=== PATIENT | male | born 1945 | race Caucasian/White ===

== ENCOUNTER 2021-12-25 09:53 | Outpatient (CLI) | payer OTHER, SELFPAY ==
--- NOTE | 2021-12-25 15:37 | NEURO ---
NCS and/or EMG Patient Report Ordering Doctor: Shari Valdivia DATE OF SERVICE: 12/25/21 Red presents for electrodiagnostic testing of the upper limbs. He reports numbness and tingling in both hands, worse on the left side. Electrodiagnostic findings: Median motor nerve demonstrates prolonged distal latency bilaterally with normal amplitude and reduced conduction velocity. Normal ulnar motor response bilaterally. Prolonged median F wave bilaterally. Absent left median sensory response at the wrist. Absent left median palmar response. Prolonged right median sensory latency at the wrist. Prolonged right median palmar latency. Normal ulnar and radial sensory responses. On needle EMG, 1+ fibrillations are noted in the left pronator teres. All other muscles tested showed no evidence of denervation with normal motor unit action potentials. Electrodiagnostic impression: This is an abnormal study in the upper limbs. 1. Electrodiagnostic findings demonstrate bilateral median mononeuropathy. This is consistent with a moderate right carpal tunnel syndrome and a severe left carpal tunnel syndrome. 2. No electrodiagnostic evidence is noted for cervical radiculopathy.
== END 2021-12-25 23:59 | disposition home or self-care (01) ==
PROVIDERS: PCP Family Medicine
DX: G56.00 Carpal tunnel syndrome, unspecified upper limb (principal)
CPT/HCPCS: 95886; 95912

== ENCOUNTER → 2025-05-26 | Outpatient (CLI) | payer MEDICARE, SELFPAY ==
--- NOTE | 2025-05-26 08:50 | CT_ITS ---
PROCEDURE: ABDOMEN/PELVIS WITH CONTRAST 05/26/2025 REASON FOR EXAM: ABDOMINAL PAIN/CONSTIPATION/H/O DIVERTICULITIS TECHNIQUE: Procedure Code: [id number] Modality: CT Procedure: ABDOMEN/PELVIS WITH CONTRAST Coronal and Sagittal reconstruction series were provided. CONTRAST: Isovue-300 VOLUME: 100 mL One or more dose reduction techniques were used (e.g., Automated exposure control, adjustment of the mA and/or kV according to patient size, use of iterative reconstruction technique. RADIATION DOSE SUMMARY: CTDlvol: 14 mGy DLP: 1316.09 mGycm COMPARISON: None FINDINGS: There is a 2.4 cm cystic structure in the subcutaneous tissue overlying the lower right anterior chest wall. Lung bases: Minimal increased linear markings at the lung bases suggestive of linear atelectasis and/or scarring. Coronary artery calcification. Liver: Borderline hepatomegaly. Gallbladder: Small gallstones. Spleen: Normal size. Pancreas: Diffuse fatty atrophy. Adrenals: Unremarkable Kidneys: There is a 2.5 cm cyst in the lateral midportion of the right kidney. No evidence of hydronephrosis. Bladder: Mild degree of diffuse bladder wall thickening. The prostate is nonenlarged. Bowel: There is evidence of acute sigmoid diverticulitis with increased markings in the surrounding peritoneal fat in keeping with a inflammatory change. There is also evidence of a 5.6 cm by 6.1 cm fluid collection along the mesenteric side of the sigmoid colon with an air-fluid level. This may represent a localized abscess. This can not be drained percutaneously due to no safe access. For is also evidence of a small amount of free fluid in the right lower pelvis. Appendix: The appendix is not identified. There is no inflammatory process identified in the right lower quadrant to suggest appendicitis. Lymph nodes: Unremarkable. Vasculature: Mild diffuse atherosclerotic calcifications are noted. Peritoneum / Retroperitoneum: Unremarkable Bones: Degenerative changes of the spine. CT/Abdomen/Pelvis WITH Contrast IMPRESSION: Acute sigmoid diverticulitis with findings suggestive of a localized fluid chrissie ection/abscess along the mesenteric side of the sigmoid colon measuring 5.5 cm 6.1 cm. Small amount of fluid seen in the right hemipelvis. The fluid collection can not be accessed percutaneously due to lack of safe access. Multiple small gallstones. Right renal cysts. Mild degree of diffuse bladder wall thickening. Reading Location: [place] [id number]
== END | disposition home or self-care (01) ==
PROVIDERS: PCP Family Medicine; Referring Provider Surgery; Visit Provider Surgery
DX: R10.9 Unspecified abdominal pain (principal); K59.00 Constipation, unspecified; Z87.19 Personal history of other diseases of the digestive system
CPT/HCPCS: 74177; Q9967

== ENCOUNTER → 2025-07-05 | Outpatient (CLI) | payer MEDICARE, SELFPAY ==
--- NOTE | 2025-07-05 08:18 | CT_ITS ---
PROCEDURE: CT/Abdomen/Pelvis WITH Contrast
== END | disposition home or self-care (01) ==
LOC: CT 08:16
PROVIDERS: PCP Family Medicine
DX: K57.92 Diverticulitis of intestine, part unspecified, without perforation or abscess without bleeding (principal)
CPT/HCPCS: 74177